=== PATIENT | female | born 1980 | race Caucasian/White ===

== ENCOUNTER 2018-12-13 05:17 | Day surgery (SDC) | payer OTHER ==
[2018-12-06 10:09] LABS: APPEARANCE,URINE CLEAR; BILIRUBIN,URINE NEGATIVE (NEGATIVE); COLOR,URINE STRAW; GLUCOSE, URINE NEGATIVE (NEGATIVE); KETONES,URINE NEGATIVE (NEGATIVE); LEUKOCYTE ESTERASE,URINE NEGATIVE (NEGATIVE); NITRITE,URINE NEGATIVE (NEGATIVE); PROTEIN,URINE NEGATIVE (NEGATIVE); URINE SPECIFIC GRAVITY 1.005; UROBILINOGEN,URINE NEGATIVE mg/dL (<2.0)
[2018-12-06 10:17] LABS: HEMATOCRIT 40.7 % (36.0-47.0); HEMOGLOBIN 13.1 g/dL (12.0-15.5); MEAN CORPUSCULAR HEMOGLOBIN 26.2 pg (27.0-33.4); MEAN CORPUSCULAR HGB CONC 32.3 g/dL (32.0-36.0); MEAN CORPUSCULAR VOLUME 81 fl (80-97); PLATELET COUNT 433 10^3/uL (150-450); RED BLOOD COUNT 5.01 10^6/uL (3.72-5.28); RED CELL DISTRIBUTION WIDTH 14.9 % (11.5-14.0); WHITE BLOOD COUNT 4.2 10^3/uL (4.0-10.5)
[2018-12-06 10:38] LABS: ANION GAP 11 (5-19); BLOOD UREA NITROGEN 14 mg/dL (7-20); CALCIUM 10.3 mg/dL (8.4-10.2); CARBON DIOXIDE 28 mmol/L (22-30); CHLORIDE 102 mmol/L (98-107); GLUCOSE 77 mg/dL (75-110); POTASSIUM 5.1 mmol/L (3.6-5.0)
[~2018-12-13 05:17] MED LIST: CEFAZOLIN SODIUM 1 GM in DEXTROSE 5%-WATER 50 ML IV PRN; LACTATED RINGERS 1000 ML IV PRN; LIDOCAINE 0.5% INJ-PF (5 MG/ML) 50 ML SDV SUBCUT PRN
[2018-12-13] MEDS ORDERED: CEFAZOLIN INJ 1 GM VIAL ONE (05:40)
[2018-12-13] MEDS ORDERED: MIDAZOLAM 2 MG/2 ML INJ ONE (06:48)
[2018-12-13] MEDS ORDERED: FENTANYL CITRATE INJ/PF 100 MCG/2 ML AMPUL ONE (06:48)
[2018-12-13] MEDS ORDERED: PROPOFOL INJ 200 MG/20 ML VIAL IV ONE ×2 (06:48→07:06)
[2018-12-13] MEDS ORDERED: LIDOCAINE 2% INJ (20 MG/ML) 20 ML MDV ONE (06:49)
[2018-12-13] MEDS ORDERED: FENTANYL CITRATE INJ/PF 100 MCG/2 ML AMPUL IV PRN ×3 (07:04)
[2018-12-13] MEDS ORDERED: ONDANSETRON HCL INJ/PF 4 MG/2 ML SDV IV PRN (07:04)
[2018-12-13] MEDS ORDERED: DIPHENHYDRAMINE HCL 50 MG/ML VIAL IV PRN (07:04)
[2018-12-13] MEDS ORDERED: MEPERIDINE HCL/PF INJ 25 MG/1 ML DISP.SYRIN IV PRN (07:04)
[2018-12-13] MEDS ORDERED: KETOROLAC TROMETHAMINE 60 MG/2 ML SDV ONE (07:06)
[2018-12-13] MEDS ORDERED: DEXAMETHASONE SOD PHOSPHATE INJ 4 MG/1 ML VIAL ONE (07:06)
[2018-12-13] MEDS ORDERED: ONDANSETRON HCL INJ/PF 4 MG/2 ML SDV ONE (07:06)
[2018-12-13] MEDS ORDERED: LIDOCAINE 1% INJ-PF (10 MG/ML) 30 ML SDV ONE (07:13)
--- NOTE | 2018-12-13 07:52 | Brief Operative Note ---
BRIEF OPERATIVE REPORT DATE OF SURGERY: 12/13/18 TIME OF SURGERY: 07:45 PREOPERATIVE DIAGNOSIS: Endometrial polyp POSTOPERATIVE DIAGNOSIS: Endometrial polyp SURGEON: YUDY BLACKBURN FINDINGS: Endometrial polyp COMPLICATIONS: None ESTIMATED BLOOD LOSS: 10 mL's TISSUE REMOVED OR ALTERED: Endometrial polyp TECHNICAL PROCEDURE: hysteroscopic excision of endometrial polyp. INDICATIONS FOR PROCEDURE: The patient had abnormal uterine bleeding for several months unresponsive. to usual outpatient management. The usual risks of bleeding, infection,. anesthesia, and damage to organs and tissues had been discussed with the. patient and understood. PROCEDURE: The patient was taken to the operating room, placed in a modified. lithotomy position. After adequate anesthesia was ascertained, we prepped. and draped in the usual manner for a hysteroscopy . Paracervical block done. The cervix readily admitted dilators. A single-tooth tenaculum was placed. on the anterior lip of the cervix after anesthesia was instilled. Hysteroscopy ensued. A endometrial cavity was noted and posterior endometrial polyp was appreciated. It was elected to proceed to MyoSure endometrial sampling of the entire endometrial cavity and is productive of a fair amount of tissue. Complete excision of polyp performed. Bleeding was nil at the completion of the procedure NovaSure was not performed.
[2018-12-13] MEDS ORDERED: OXYCODONE-ACETAMINOPHEN 5-325 MG TABLET PO PRN (08:06)
[2018-12-13] MEDS ORDERED: PROMETHAZINE HCL INJ 25 MG/1 ML VIAL IM PRN (08:07)
[2018-12-13] MEDS ORDERED: ACETAMINOPHEN 1,000 MG/100 ML RTUPB IV ONE (09:11)
[2018-12-13] MEDS ORDERED: IBUPROFEN 800 MG TABLET PO SCH (10:00)
[2018-12-13] MEDS ORDERED: IBUPROFEN 800 MG TABLET PO ONE (10:05)
[2018-12-13] MEDS ORDERED: IBUPROFEN 800 MG TABLET ONE (10:06)
[2018-12-13 10:42] VITALS: BP 132/92
== END 2018-12-13 10:40 | disposition home or self-care (01) ==
LOC: OROUT 05:17
PROVIDERS: ATTEND Specialist
DX: N84.0 Polyp of corpus uteri (principal); N71.1 Chronic inflammatory disease of uterus
CPT/HCPCS: 86900; 86901; 36415; 86850; 82962; 85027; 81025; 80048; 81001; 88305 ×2; 58558; J2250; J3490 ×2; J0690; J1100; J1885; J3010; J2405; J7060; J2704; J0131; 952

== ENCOUNTER 2019-06-27 05:17 | Observation (INO) | payer OTHER ==
[2019-06-21 10:00] LABS: HEMATOCRIT 36.1 % (36.0-47.0); HEMOGLOBIN 11.8 g/dL (12.0-15.5); MEAN CORPUSCULAR HEMOGLOBIN 25.4 pg (27.0-33.4); MEAN CORPUSCULAR HGB CONC 32.8 g/dL (32.0-36.0); MEAN CORPUSCULAR VOLUME 77 fl (80-97); PLATELET COUNT 405 10^3/uL (150-450); RED BLOOD COUNT 4.66 10^6/uL (3.72-5.28); RED CELL DISTRIBUTION WIDTH 14.8 % (11.5-14.0); WHITE BLOOD COUNT 5.2 10^3/uL (4.0-10.5)
--- NOTE | 2019-06-21 10:01 | RADIOLOGY REPORT (SQ) ---
EXAM DESCRIPTION: CHEST PA/LATERAL IMAGES COMPLETED DATE/TIME: 06/21/2019 9:49 am REASON FOR STUDY: PRE-OP COMPARISON: None. EXAM PARAMETERS: NUMBER OF VIEWS: two views TECHNIQUE: Digital Frontal and Lateral radiographic views of the chest acquired. RADIATION DOSE: NA LIMITATIONS: none FINDINGS: LUNGS AND PLEURA: No opacities, masses or pneumothorax. No pleural effusion. MEDIASTINUM AND HILAR STRUCTURES: No masses or contour abnormalities. HEART AND VASCULAR STRUCTURES: Heart normal size. No evidence for failure. BONES: No acute findings. HARDWARE: None in the chest. OTHER: No other significant finding. IMPRESSION: NO SIGNIFICANT RADIOGRAPHIC FINDING IN THE CHEST. TECHNICAL DOCUMENTATION: JOB ID: [id number] [employer]- All Rights Reserved Reading location - IP/workstation name: [email or web address]
[2019-06-21 10:10] LABS: APPEARANCE,URINE CLEAR; BILIRUBIN,URINE NEGATIVE (NEGATIVE); COLOR,URINE STRAW; GLUCOSE, URINE NEGATIVE (NEGATIVE); KETONES,URINE NEGATIVE (NEGATIVE); LEUKOCYTE ESTERASE,URINE NEGATIVE (NEGATIVE); NITRITE,URINE NEGATIVE (NEGATIVE); PROTEIN,URINE NEGATIVE (NEGATIVE); URINE SPECIFIC GRAVITY 1.009; UROBILINOGEN,URINE NEGATIVE mg/dL (<2.0)
[2019-06-21 10:22] LABS: ANION GAP 9 (5-19); BLOOD UREA NITROGEN 11 mg/dL (7-20); CALCIUM 9.9 mg/dL (8.4-10.2); CARBON DIOXIDE 27 mmol/L (22-30); CHLORIDE 102 mmol/L (98-107); GLUCOSE 99 mg/dL (75-110); POTASSIUM 5.1 mmol/L (3.6-5.0)
--- NOTE | 2019-06-21 12:09 | EKG REPORT ---
SEVERITY:- NORMAL ECG - SINUS RHYTHM : Confirmed by: Talon Guajardo MD 21-Jun-2019 12:09:02
[~2019-06-27 05:17] MED LIST changes: +CEFAZOLIN 1 GM/D5W RTU 1 GM/50 ML RTUPB IV PRN; -CEFAZOLIN SODIUM 1 GM in DEXTROSE 5%-WATER 50 ML IV PRN
[2019-06-27] MEDS ORDERED: CEFAZOLIN 1 GM/D5W RTU 1 GM/50 ML RTUPB IV ONE (05:19)
[2019-06-27 06:35] LABS: POTASSIUM 4.6 mmol/L (3.6-5.0)
[2019-06-27] MEDS ORDERED: KETOROLAC TROMETHAMINE 60 MG/2 ML SDV ONE (06:49)
[2019-06-27] MEDS ORDERED: HYDROMORPHONE HCL INJ/PF 2 MG/ML AMPULE ONE (06:49)
[2019-06-27] MEDS ORDERED: MIDAZOLAM 2 MG/2 ML INJ ONE (06:49)
[2019-06-27] MEDS ORDERED: FENTANYL CITRATE INJ/PF 100 MCG/2 ML AMPUL ONE (06:49)
[2019-06-27] MEDS ORDERED: ONDANSETRON HCL INJ/PF 4 MG/2 ML SDV ONE ×2 (06:49→08:39)
[2019-06-27] MEDS ORDERED: DEXAMETHASONE SOD PHOSPHATE INJ 4 MG/1 ML VIAL ONE (06:49)
[2019-06-27] MEDS ORDERED: PROPOFOL INJ 200 MG/20 ML VIAL IV ONE (06:50)
[2019-06-27] MEDS ORDERED: LIDOCAINE 1%/EPINEPHRINE INJ 20 ML VIAL ONE (07:05)
[2019-06-27] MEDS ORDERED: DIPHENHYDRAMINE HCL 50 MG/ML VIAL IV PRN (07:38)
[2019-06-27] MEDS ORDERED: MEPERIDINE HCL/PF INJ 25 MG/1 ML DISP.SYRIN IV PRN (07:38)
[2019-06-27] MEDS ORDERED: ONDANSETRON HCL INJ/PF 4 MG/2 ML SDV IV PRN (07:38)
[2019-06-27] MEDS ORDERED: PROMETHAZINE HCL INJ 25 MG/1 ML VIAL IV PRN (07:38)
[2019-06-27] MEDS ORDERED: FENTANYL CITRATE INJ/PF 100 MCG/2 ML AMPUL IV PRN ×3 (07:38)
[2019-06-27] MEDS: LABETALOL HCL INJ 20 MG/4 ML DISP.SYRIN IV ONE ×4 (08:28→09:01)
--- NOTE | 2019-06-27 08:30 | Operative Report ---
Operative Report DATE OF SURGERY: 06/27/19 PREOPERATIVE DIAGNOSIS: menorrhgia POSTOPERATIVE DIAGNOSIS: menorrhgia OPERATION: [facility] SURGEON: YUDY BLACKBURN ANESTHESIA: GA TISSUE REMOVED OR ALTERED: cervix, uterus COMPLICATIONS: INDICATIONS FOR PROCEDURE: The patient had unreasonable uterine bleeding despite multiple outpatient management. She desired attempt at definitive therapy. The usual risks of bleeding, infection, anesthesia, and damage to organs or tissues was discussed with the patient who understood, and she desires attempt at definitive therapy. PROCEDURE: The patient was taken to the operating room. The patient was placed in modified lithotomy position. Adequate anesthesia was ascertained. She was prepped and draped in the usual manner for a vaginal hysterectomy. EUA was performed after a time out was performed and antibiotics had been given. Bladder was drained under sterile technique. The posterior vagina was retracted with a weighted speculum and a Santacruz speculum was used anteriorly. The posterior colpotomy incision was made, local infiltration of the area afterwards with 1% with epinephrine lidocaine was instilled with good hemostasis noted at this point. The uterosacral ligaments were crossclamped, cut, suture ligated, and held. The cervix was circumscribed. The bladder was advanced sequentially throughout this aspect of the procedure with LigaSure device used for hemostasis bilaterally. The anterior cul-de-sac was entered without difficulty. A [place] retractor was placed within the peritoneal cavity and the pedicles were identified and crossclamped and held. The cervix and uterus were handed off the operative field. The pedicles were noted to be dry. The ovaries were visually normal. The Howard culdoplasty suture was placed and held, and the vagina was closed in an anterior to posterior fashion with #1 chromic catgut used throughout the case. Good hemostasis was noted. The vagina was irrigated. The bladder was drained of a small amount of urine at the completion of the case. All sponge and needle counts were correct. ESTIMATED BLOOD LOSS: 150 INTRAOPERATIVE FINDINGS: Normal uterus cervix tubes and ovaries PROCEDURE: INDICATIONS FOR PROCEDURE: The patient had unreasonable uterine bleeding despite multiple outpatient management. She desired attempt at definitive therapy. The usual risks of bleeding, infection, anesthesia, and damage to organs or tissues was discussed with the patient who understood, and she desires attempt at definitive therapy. PROCEDURE: The patient was taken to the operating room. The patient was placed in modified lithotomy position. Adequate anesthesia was ascertained. She was prepped and draped in the usual manner for a vaginal hysterectomy. EUA was performed after a time out was performed and antibiotics had been given. Bladder was drained under sterile technique. The posterior vagina was retracted with a weighted speculum and a Santacruz speculum was used anteriorly. The posterior colpotomy incision was made, local infiltration of the area afterwards with 1% with epinephrine lidocaine was instilled with good hemostasis noted at this point. The uterosacral ligaments were crossclamped, cut, suture ligated, and held. The cervix was circumscribed. The bladder was advanced sequentially throughout this aspect of the procedure with LigaSure device used for hemostasis bilaterally. The anterior cul-de-sac was entered without difficulty. A [place] retractor was placed within the peritoneal cavity and the pedicles were identified and crossclamped and held. The cervix and uterus were handed off the operative field. The pedicles were noted to be dry. The ovaries were visually normal. The Howard culdoplasty suture was placed and held, and the vagina was closed in an anterior to posterior fashion with #1 chromic catgut used throughout the case. Good hemostasis was noted. The vagina was irrigated. The bladder was drained of a small amount of urine at the completion of the case. All sponge and needle counts were correct.
[2019-06-27] MEDS: FENTANYL CITRATE INJ/PF 100 MCG/2 ML AMPUL ONE ×2 (08:35→08:40)
[2019-06-27] MEDS ORDERED: HYDROMORPHONE HCL INJ/PF 2 MG/ML AMPULE IV PRN (10:07)
[2019-06-27] MEDS ORDERED: PROMETHAZINE HCL INJ 25 MG/1 ML VIAL IM PRN (10:30)
[2019-06-27] MEDS: OXYCODONE-ACETAMINOPHEN 5-325 MG TABLET PO PRN ×4 (10:44→23:39)
[2019-06-27] MEDS: LABETALOL HCL 200 MG TABLET PO SCH ×2 (10:44→22:10)
--- NOTE | 2019-06-27 11:25 | PDOC CONSULTATION ---
Consultation Consult Date: 06/27/19 Provider Consulted: YUDY BLACKBURN Consult reason:: Elevated blood pressure History of Present Illness Admission Date/PCP: YUDY BLACKBURN MD Patient complains of: Abdominal pain History of Present Illness: MELLISA HUTCHISON is a 38 year old female who has history of menorrhagia and underwent vaginal hysterectomy earlier today. She currently complains of abdominal cramping postoperatively. Patient had elevated blood pressure readings after the procedure that have been consistent. Hospitalist was consulted to manage elevated blood pressure. Patient mentioned that she had family history and personal history of hypertension. She is to take 1 medication for high blood pressure about 9 years ago. Her blood pressure normalized after she lost almost 100 pounds and continued to exercise regularly. She said after her third child she gained a little bit of weight. But her blood pressure was not elevated prior to the surgery. She is already started on oral labetalol by the primary team. Her blood pressure in the range of 140s/100s. Past Medical History Cardiac Medical History: Reports: Hypertension - IN PAST. NO MEDS. Denies: Coronary Artery Disease, Myocardial Infarction Pulmonary Medical History: Denies: Asthma, Bronchitis, Chronic Obstructive Pulmonary Disease (COPD), Pneumonia Neurological Medical History: Denies: Seizures Musculoskeltal Medical History: Denies: Arthritis Hematology: Reports: Anemia - BORDERLINE Social History Smoking Status: Never Smoker Family History Parental Family History Reviewed: Yes Children Family History Reviewed: Yes Sibling(s) Family History Reviewed.: Yes Medication/Allergy Home Medications: Metformin HCl 1,000 mg PO BID 12/06/18 Multivitamin [Multivitamins] 1 each PO DAILY 06/21/19 [place]-3/Dha/Epa/Fish Oil [Fish Oil 1,000 mg Softgel] 1 each PO DAILY 06/21/19 Allergies/Adverse Reactions: morphine [Morphine] Allergy (Verified 06/27/19 05:40) Review of Systems All systems: reviewed and no additional remarkable complaints except as stated Physical Exam Vital Signs: Temp Pulse Resp BP Pulse Ox 97.5 F 75 16 149/94 H 100 06/27/19 10:32 06/27/19 10:32 06/27/19 10:32 06/27/19 10:32 06/27/19 10:32 Intake & Output 06/26/19 06/27/19 06/28/19 06:59 06:59 06:59 Intake Total 0 1260 Output Total 265 Balance 0 995 Weight 169 lb 12.1 oz General appearance: PRESENT: no acute distress, cooperative Head exam: PRESENT: atraumatic, normocephalic Eye exam: PRESENT: EOMI, PERRLA Mouth exam: PRESENT: neck supple, tongue midline Neck exam: ABSENT: meningismus, tenderness, tracheostomy Respiratory exam: PRESENT: clear to auscultation ashly. ABSENT: accessory muscle use Cardiovascular exam: PRESENT: RRR, +S1, +S2 GI/Abdominal exam: PRESENT: normal bowel sounds, tenderness Rectal exam: PRESENT: deferred Extremities exam: ABSENT: joint swelling, pedal edema Neurological exam: PRESENT: alert, awake, oriented to person, oriented to place, oriented to time, oriented to situation Psychiatric exam: PRESENT: appropriate affect, normal mood. ABSENT: suicidal ideation Skin exam: PRESENT: normal color. ABSENT: cyanosis Results Laboratory Results: 06/21/19 09:19 06/27/19 06:05 06/27/19 06:05 Potassium 4.6 Glucose 107 Impressions: Chest X-Ray 06/21/19 00:00 IMPRESSION: NO SIGNIFICANT RADIOGRAPHIC FINDING IN THE CHEST. Assessment and Plan - Diagnosis (1) Hypertension Is this a current diagnosis for this admission?: Yes Plan: Most likely elevated blood pressure readings are related to pain and fluid retention as well as IV fluid infusion. Agree with labetalol for now. Monitor blood pressure regularly. I suspect after the pain is better controlled and she is tolerating diet and off the fluids that her pressure improves. (2) Menorrhagia Is this a current diagnosis for this admission?: Yes Plan: Status post vaginal hysterectomy today
[2019-06-27] MEDS: CEFAZOLIN 1 GM RTU (EDIT START TIME) IV SCH ×2 (12:45→17:32)
[2019-06-27] MEDS ORDERED: SUCCINYLCHOLINE CHLORIDE INJ 200 MG/10 ML VIAL ONE (13:44)
[2019-06-27] MEDS ORDERED: ROCURONIUM BROMIDE INJ 50 MG/5 ML VIAL IV ONE (13:44)
[2019-06-27] MEDS: IBUPROFEN 800 MG TABLET PO SCH ×2 (14:05→22:09)
[2019-06-28] MEDS: IBUPROFEN 800 MG TABLET PO SCH (05:14)
[2019-06-28] MEDS: OXYCODONE-ACETAMINOPHEN 5-325 MG TABLET PO PRN (06:00)
[2019-06-28 07:00] LABS: HEMATOCRIT 29.2 % (36.0-47.0); HEMOGLOBIN 9.9 g/dL (12.0-15.5); MEAN CORPUSCULAR HEMOGLOBIN 25.7 pg (27.0-33.4); MEAN CORPUSCULAR HGB CONC 33.9 g/dL (32.0-36.0); MEAN CORPUSCULAR VOLUME 76 fl (80-97); PLATELET COUNT 320 10^3/uL (150-450); RED BLOOD COUNT 3.86 10^6/uL (3.72-5.28); RED CELL DISTRIBUTION WIDTH 15.2 % (11.5-14.0); WHITE BLOOD COUNT 7.5 10^3/uL (4.0-10.5)
[2019-06-28 07:58] VITALS: BP 136/88
== END 2019-06-28 09:06 | disposition home or self-care (01) ==
LOC: OROUT 05:17 → 2N 09:30 → OROUT 09:31 → 2N 09:40
PROVIDERS: ADMIT Specialist; ATTEND Specialist
DX: N92.0 Excessive and frequent menstruation with regular cycle (principal); N72 Inflammatory disease of cervix uteri; N84.0 Polyp of corpus uteri; D25.2 Subserosal leiomyoma of uterus; E28.2 Polycystic ovarian syndrome; I10 Essential (primary) hypertension; G89.18 Other acute postprocedural pain; R10.9 Unspecified abdominal pain; Z82.49 Family history of ischemic heart disease and other diseases of the circulatory system; Z03.818 Encounter for observation for suspected exposure to other biological agents ruled out; Z79.84 Long term (current) use of oral hypoglycemic drugs
CPT/HCPCS: 93005; 86900; 86901; 36415 ×4; 86850; 82947; 84132; 85027 ×2; 87635; 81025; 80048; 81001; 88307 ×2; 71046; 93010; 00944; 58260; J2250; J0690; J3490 ×3; J1100; J1885; J3010; J1170; J0330; J2405; J7120; J2704; 944; G0378